=== PATIENT | male | born 1995 | race Caucasian/White ===

== ENCOUNTER 2020-12-28 02:44 | Day surgery (SDC) | payer OTHER, SELFPAY ==
--- NOTE | 2020-12-27 14:35 | WPDANESEPPF ---
Anes - Initial Pre Proc Eval Procedure: Operation Date: 12/28/20 15:15 Proposed Procedures p Cystoscopy, Urethral Dilatation with Removal Foreign Body In Bladder, - Tom Hernandez MD s Possible Open Cystolithotomy - Tom Hernandez MD Date/Time: 12/27/20 14:35 Surgeon: Tom Hernandez MD Pre Op Diagnosis: gross hematuria, foreign body in bladder Patient Data Age: 25 Gender: M Height: Weight: Allergies Allergy/AdvReac Type Severity Reaction Status Date / Time No Known Drug Allergies Allergy Unknown Verified 06/24/17 10:59 Anes - Eval Final PreProcedure Day of Procedure 12/27/20 14:35 Patient weight: overweight Heart: regular rate and rhythm Lungs: clear to auscultation and normal air movement Airway: Mallampati scale class II Neurological: alert and oriented Last oral intake: >/= 8 hours ASA classification: II Emergent: no Anesthetic plan: proceed Anesthesia type and monitoring: general LMA Informed Consent: The patient's anesthetic plan and its attendant risks and benefits were discussed with the patient/family/POA. Questions were solicited and answers provided to the satisfaction of the patient/family/POA.
[2020-12-28] VITALS (7 sets, daily range): BP systolic 94–117; BP diastolic 61–82; PULSE 47–77; RESP 12–20; TEMP 36.4–37; O2SAT 99–100; BMI 19.3
--- NOTE | 2020-12-28 14:43 | WPDHPUPDATE1 ---
History and Physical Update Update Date/Time: 12/28/20 14:43 History and Physical has been reviewed, including an updated exam of the patient. There are NO changes in the patient's condition. Risks, benefits, and alternatives have been discussed and questions answered. Patient agrees to proceed with procedure. Proceed with cystoscopy and extraction of foreign body. Possible open cystolithotomy
[2020-12-28] MEDS: LACTATED RINGERS 1,000 ML 30 ML IV CONT ×3 (15:20→16:16)
--- NOTE | 2020-12-28 15:20 | WPDANESEPPF ---
Anes - Initial Pre Proc Eval Procedure: Operation Date: 12/28/20 15:15 Proposed Procedures p Cystoscopy, Urethral Dilatation with Removal Foreign Body In Bladder, - Tom Hernandez MD s Possible Open Cystolithotomy - Tom Hernandez MD Date/Time: 12/28/20 15:20 Surgeon: Tom Hernandez MD Pre Op Diagnosis: gross hematuria, foreign body in bladder Patient Data Age: 25 Gender: M Height: Weight: Allergies Allergy/AdvReac Type Severity Reaction Status Date / Time No Known Drug Allergies Allergy Unknown Verified 06/24/17 10:59 Patient hx anesthesia problems: none Family hx anesthesia problems: none Anes - Eval Final PreProcedure Day of Procedure 12/28/20 15:20 Patient weight: normal Heart: regular rate and rhythm Lungs: clear to auscultation and normal air movement Airway: Mallampati scale class II Neurological: alert and oriented Last oral intake: >/= 8 hours ASA classification: II Emergent: yes Anesthetic plan: proceed Anesthesia type and monitoring: general LMA and standard monitoring Informed Consent: The patient's anesthetic plan and its attendant risks and benefits were discussed with the patient/family/POA. Questions were solicited and answers provided to the satisfaction of the patient/family/POA.
--- NOTE | 2020-12-28 16:26 | W.PM.PROC2 ---
Procedure Note - Detailed Date of Procedure 12/28/20 Pre-op Diagnosis gross hematuria, foreign body in bladder Post-op Diagnosis same Procedure Performed Six urethral dilation, cystoscopy with extraction of foreign body from bladder Surgeon Tom Hernandez MD Anesthesia general Description of Procedure patient is taken the operative suite and correctly identified. Once anesthesia was obtained he was placed in dorsal lithotomy position and prepped draped usual sterile fashion. Twenty-two Hebrew scope was inserted into the urethra after we dilated up to 24 Hebrew using male sounds. The bladder was inspected. The foreign body which was metal was visualized. We were able to get an escape basket around the circular portion of it. We were able then to retrieve it in its entirety. Reinspection of the urethra reveals no urethral trauma at this time. 2% viscous lidocaine was inserted into the urethra patient is taken recovery stable condition. Drains No Packing No Pathology yes Complications No immediate complications Condition stable Disposition PACU
== END 2020-12-28 17:37 | disposition home or self-care (01) ==
PROVIDERS: Visit Provider Urology
PROC: 0T7D8ZZ Dilation of Urethra, Via Natural or Artificial Opening Endoscopic (ICD-10-PCS; CPT 52281; principal; 2020-12-28 15:15)
DX: T19.1XXA Foreign body in bladder, initial encounter (principal); R31.0 Gross hematuria; X58.XXXA Exposure to other specified factors, initial encounter
CPT/HCPCS: 52310; 36415; 87426; 88300; A9270; C9803; J0131; J1100; J1885; J2250; J2405; J2704; J3010; J7120

== ENCOUNTER 2020-12-28 14:41 | Outpatient (CLI) | payer OTHER, SELFPAY ==
[2020-12-28 15:02] LABS: EDCOVIDSCREEN Negative (Negative)
== END 2020-12-28 14:42 ==
LOC: ANHSURGERY 01-17 14:41
PROVIDERS: Visit Provider Urology
DX: Z01.812 Encounter for preprocedural laboratory examination (principal); Z20.822 Contact with and (suspected) exposure to COVID-19
CPT/HCPCS: 36415; 87426; C9803